=== PATIENT | female | born 1975 | race Caucasian/White ===

== ENCOUNTER 2018-09-12 13:41 | Emergency (ER) | payer BC ==
[~2018-09-12] VITALS: Wt 82.0 kg
[2018-09-12 13:44] VITALS: BP 132/71; PULSE 101; RESP 18
--- NOTE | 2018-09-12 15:08 | ERD ---
ER Documentation Chief Complaint Chief Complaint SORE THROAT X 2 DAYS HPI This is a 43-year-old female patient who presents to the emergency room with complaint of difficulty swallowing since yesterday. At the time of the occurrence she was not eating and did not have anything in her mouth. States it was difficulty to swallow she tried taking an unknown antibiotic at home to help her and was not able to swallow the pill. She states she has been able to eat and drink in the last 24 hours although she feels like there is something stuck in her sore throat. Denies recent fever, no medical problems. Does have cough as though she is trying to clear her throat. No wheezing, no drooling, no st ridor. Patient is otherwise well appearing. ROS All systems reviewed and are negative except as per history of present illness. Medications Home Meds Active Scripts Phenol* (Chloraseptic* [place]) 177 Ml [place].pump, 2 SPRAY MT Q2H PRN for SORE THROAT for 7 Days, #1 BOTTLE Prov:SARA HOUSE NP 09/12/18 Allergies Allergies: Coded Allergies: No Known Allergy (Unverified , 09/12/18) PMhx/Soc Medical and Surgical Hx: pt denies Medical Hx, pt denies Surgical Hx Hx Alcohol Use: No Hx Substance Use: No Hx Tobacco Use: No Smoking Status: Never smoker FmHx Family History: No diabetes, No coronary disease, No other Physical Exam Vitals Vital Signs Date Temp Pulse Resp B/P (MAP) Pulse Ox O2 O2 Flow FiO2 Time Delivery Rate 09/12/18 99.1 101 18 132/71 99 13:44 (91) Physical Exam Const: No acute distress Head: Atraumatic Eyes: Normal Conjunctiva, PERRL ENT: Normal External Ears and Nose. Pharynx pink, no lesions, no exudate, tonsils +2. Neck: Full range of motion. No meningismus. No lymphadenopathy, no thyromegaly, no stridor. Resp: Clear to auscultation bilaterally, wheezing, no rhonchi no rails, no difficulty breathing, no increased work of breathing Cardio: Regular rate and rhythm, no murmurs Abd: Soft, non tender, non distended. Normal bowel sounds Skin: No petechiae or rashes Ext: No cyanosis, or edema Neur: Awake and alert Psych: Normal Mood and Affect Results 24 hrs Laboratory Tests Test 09/12/18 14:49 09/12/18 14:53 POC Beta HCG, Qualitative NEGATIVE Bedside Urine pH (LAB) 6.0 Bedside Urine Protein (LAB) Trace Bedside Urine Glucose (UA) Negative Bedside Urine Ketones (LAB) Trace Bedside Urine Blood Trace-intact Bedside Urine Nitrite (LAB) Negative Bedside Urine Leukocyte Esterase (L Trace Procedures/MDM This is a 43-year-old female patient who reports reports to the emergency room with complaint of difficulty swallowing since yesterday. ED COURSE: The patient was stable throughout ED course. I kept the patient and/or family informed of diagnostic imaging results throughout the ED course. DIAGNOSTIC IMAGING: The heart and mediastinum are within normal limits. The lungs are clear. There is no pleural effusion or pneumothorax. The bones and soft tissues are unremarkable. There is no radiopaque foreign body. Read by radiologist. PROCEDURES: PO challenge: pt able to drink water without difficulty MEDICATIONS GIVEN: None. MDM: Patient has been observed in emergency room without shortness of breath, wheezing, drooling, no difficulty swallowing water. Clinical exam does not indicate concern for airway involvement as there is no lymphadenopathy, no swelling, no signs of infection, no evidence of foreign body aspiration. Low suspicion for foreign body aspiration, infectious etiology with concern for airway compromise, The patient is being discharged with Chloraseptic spray and strict ER precautions. Patient speaking clear sentences at time of discharge. [employer] provided with [employer] vehicle [employer] interpreter services. DISPOSITION: The patient has been discharge home to follow-up with community physician. Departure Diagnosis: Primary Impression: Sore throat Condition: Stable Patient Instructions: Understanding Dysphagia Referrals: [facility] Additional Instructions: Thank you very much for allowing us to participate in your care. Your health and safety is our top priority at [facility]. Call your primary care doctor TOMORROW for an appointment during the next 2-4 days and bring all the information and medications prescribed. Have prescriptions filled and follow precisely the directions on the label. If the symptoms get worse and your provider is unavailable, return to the Emergency Department immediately. SARA HOUSE NP Sep 12, 2018 15:08
[2018-09-12] MEDS ORDERED: PHEN177S43 MT (16:27)
== END 2018-09-12 16:50 | disposition home or self-care (01) ==
LOC: FTE 13:41
DX: J02.9 Acute pharyngitis, unspecified (principal); R13.10 Dysphagia, unspecified
CPT/HCPCS: 71046; 81003; 81025; 87880